=== PATIENT | female | born 2000 | race Caucasian/White ===

== ENCOUNTER → 2021-01-04 14:23 | Outpatient (CLI) | payer OTHER, SELFPAY ==
[2021-01-04 16:29] LABS: COVID19 -Nasal RAPID Negative (Negative)
== END ==
PROVIDERS: Visit Provider Nurse Practitioner Family
DX: Z20.822 Contact with and (suspected) exposure to COVID-19 (principal)
CPT/HCPCS: 87635

== ENCOUNTER 2021-01-07 10:08 | Day surgery (SDC) | payer OTHER, SELFPAY ==
[2021-01-05 07:39] VITALS: BMI 26.9
[2021-01-07 10:20] VITALS: BP 100/69; PULSE 76; RESP 16; TEMP 37; O2SAT 98; BMI 27.4
--- NOTE | 2021-01-07 10:35 | PM.PREOP ---
Pre-operative Note Interval Note History & Physical reviewed/Exam performed by Physician: Yes Changes to H&P: No
--- NOTE | 2021-01-07 10:35 | PM.OP.1 ---
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 Following discussion of the material risks benefits complications and alternatives, she elected to proceed. Complained of throat pain 9 days ago, culture taken, placed on antibiotics but doing better, feels back to baseline. Surgeon: Wei Osei Click Yes if Unassisted: Yes Anesthesia Type: General and Local Operative Notes Findings: Intact palate, single uvula, 3+ tonsils, 2+ adenoids Estimated Blood Loss (mL): 15 Procedure in detail: Following identification and confirmation of consent the patient was brought to the operating room suite and placed in the supine position. General endotracheal anesthesia was administered. A head wrap, shoulder roll, and mouth gag were placed and a red rubber catheter was inserted through the nostril and out the mouth to retract the soft palate. Partially obstructive adenoid tissue was ablated with suction electrocautery on a setting of 40, without injury to the eustachian tube orifices or choana. The left tonsil was retracted medially and suction electrocautery on a setting of 30 was used to dissect the tonsil in a subcapsular plane, followed by hemostasis with the same. This process was repeated on the right side with identical findings. The tonsillar fossae were superficially infiltrated bilaterally with a 1:1 mixture of 1% lidocaine 1 100,000 epinephrine and 0.25% Marcaine 1 to [id number] epinephrine. Mouth gag and rubber catheter were removed and the patient was extubated in the operating room and taken to the recovery room in stable condition without known complication. Post-operative Condition: stable Disposition: same day surgery Plan for aftercare: Push fluids, alternate Tylenol and Advil every 3 hours for baseline pain control, oxycodone for breakthrough pain. Soft diet 2 full weeks, no heavy lifting or straining 2 weeks.
[2021-01-07] MEDS: LACTATED RINGERS 1,000 ML 42 ML IV (10:50)
--- NOTE | 2021-01-07 11:11 | SUR.OPER ---
Supine on padded OR bed, head on pillow, arms padded and tucked at sides, legs uncrossed, safety belt at thigh, tape over blanket over lower legs .
[2021-01-07] MEDS: LIDOCAINE 1% W/EPI 20 ML INJ (11:14)
[2021-01-07] MEDS: BUPIVACAINE 0.25% (PF) VIAL 30 ML INJ (11:15)
[2021-01-07 11:35] VITALS: BP 102/52; PULSE 90; RESP 14; TEMP 36.2; O2SAT 99
[2021-01-07 11:40] VITALS: BP 106/62; PULSE 80; RESP 14; O2SAT 100
[2021-01-07] MEDS: OXYCODONE 5 MG/5 ML ORAL SOLUTION PO ×2 (11:48→12:21)
[2021-01-07 11:50] VITALS: BP 103/44; PULSE 76; RESP 15; O2SAT 99
[2021-01-07 11:54] VITALS: BP 112/67; PULSE 66; RESP 13; TEMP 36.4; O2SAT 99
[2021-01-07 11:58] VITALS: BP 120/65; PULSE 61; RESP 15; TEMP 36.2; O2SAT 99
--- NOTE | 2021-01-07 12:03 | SUR.PHASEII ---
report to DON Penaloza. transfer to phase 2. no active bleeding noted to tonsilar bed. vss
--- NOTE | 2021-01-07 12:10 | SUR.PHASEII ---
Report received from DON Ulloa. Pt awake and alert. Able to swallow without difficulty. No bloody secretions at present.
== END 2021-01-07 12:26 | disposition home or self-care (01) ==
PROVIDERS: Referring Provider Otolaryngology; Visit Provider Otolaryngology
PROC: (CPT 42821; principal; 2021-01-07 11:00)
DX: J03.91 Acute recurrent tonsillitis, unspecified (principal); R07.0 Pain in throat; J98.8 Other specified respiratory disorders; J35.01 Chronic tonsillitis
CPT/HCPCS: 42821; 81025; J1100; J2250; J2405; J2704; J3010